=== PATIENT | female | born 1960 | race Two or more races ===

== ENCOUNTER 2023-09-18 10:47 | Inpatient (IN) | payer OTHER ==
[~2023-09-18] VITALS: Ht 157.5 cm; Wt 56.0 kg
[2023-09-18] MEDS ORDERED: MORPHINE SULFATE 4 MG/ML SYR/VIAL IV ONE (11:00)
[2023-09-18] MEDS ORDERED: ONDANSETRON HCL 4 MG/2 ML VIAL IV ONE (11:00)
[2023-09-18 11:17] LABS: Basophils # (auto) 0.1 10 ^3/uL (0-0.2); Basophils % (auto) 0.3 % (0.0-2.0); Neutrophils # (auto) 16.8 10 ^3/uL (1.6-8.6); Neutrophils % (auto) 89.4 % (37.0-80.0)
[2023-09-18 11:19] LABS: Eosinophils # (auto) 0.1 10 ^3/uL (0-0.8); Eosinophils % (auto) 0.6 % (0.0-7.0); Hematocrit 41.8 % (36.0-46.0); Hemoglobin 14.3 g/dL (12.2-16.2); Lymphocytes % (auto) 5.3 % (10.0-50.0); Mean Corpuscular Hemoglobin 35.6 pg (28.0-32.0); Mean Corpuscular Hgb Conc. 34.2 g/dL (32.0-36.0); Mean Corpuscular Volume 104.3 fL (80.0-100.0); Monocytes # (auto) 0.8 10 ^3/uL (0-1.3); Monocytes % (auto) 4.4 % (0.0-12.0); Red Cell Distribution Width 12.3 % (11.8-14.3); White Blood Cell 18.9 10^3/uL (4.4-10.8)
[2023-09-18 11:47] LABS: Albumin 4.8 g/dL (3.2-4.8); Alkaline Phosphatase 80 U/L (46-116); Anion Gap 6 (5-15); Aspartate Aminotransferase 18 U/L (13-40); BUN/Creatinine Ratio 9.7 (10.0-20.0); Bilirubin, Total 0.4 mg/dL (0.2-1.0); Blood Urea Nitrogen 7 mg/dL (9-23); Calcium 10.1 mg/dL (8.5-10.1); Carbon Dioxide 29 mmol/L (20-30); Chloride 98 mmol/L (98-107); Glucose 102 mg/dL (74-106); Potassium 3.7 mmol/L (3.5-5.1); Sodium 133 mmol/L (136-145); Total Protein 7.3 g/dL (5.7-8.2)
[2023-09-18 11:53] LABS: INR 0.96 (0.9-1.15); Partial Thromboplastin Time 31.3 SEC (24.5-34.5); Prothrombin Time 10.1 sec (9.3-11.8)
[2023-09-18 12:08] LABS: Alanine Aminotransferase 9 U/L (7-40)
[2023-09-18] MEDS ORDERED: IOHEXOL 300 MG/ML 100ML BOTTLE IJ ONE (12:32)
[2023-09-18 13:27] LABS: Lipase 45 U/L (12-53); Magnesium 1.6 mg/dL (1.6-2.6)
[2023-09-18] MEDS ORDERED: metroNIDAZOLE 500MG/100ML 100 ML IV ONE (13:45)
[2023-09-18] MEDS ORDERED: CIPROFLOXACIN 400MG/200ML 200 ML IV ONE (13:45)
[2023-09-18 15:00] VITALS: PULSE 106; RESP 18; O2SAT 96
[2023-09-18] MEDS ORDERED: ONDANSETRON HCL 4 MG/2 ML VIAL IV PRN (15:30)
[2023-09-18] MEDS ORDERED: MAGNESIUM SULFATE 1GM/100ML 100 ML IV ONE (15:30)
[2023-09-18] MEDS ORDERED: MORPHINE SULFATE INJ 2 MG/ml SYRG IV PRN (15:30)
[2023-09-18] MEDS ORDERED: NITROGLYCERIN 0.4 MG SL TAB SL PRN (15:30)
[2023-09-18] MEDS ORDERED: SODIUM CHLORIDE 0.9% 1,000 ML IV ONE ×2 (15:30)
[2023-09-18 16:06] LABS: INR 0.97 (0.9-1.15); Prothrombin Time 10.2 sec (9.3-11.8)
[2023-09-18] MEDS ORDERED: LISINOPRIL 20 MG TAB PO ONE (16:30)
[2023-09-18] MEDS ORDERED: PARoxetine 20 MG TAB PO ONE (16:30)
[2023-09-18] MEDS ORDERED: hydrALAZINE HCL 20 MG/ML VL IV PRN (16:45)
[2023-09-18] MEDS ORDERED: hydrALAZINE HCL 20 MG/ML VL IV ONE (16:45)
[2023-09-18] MEDS: buPROPion HCL 75 MG TAB PO SCH (20:45)
[2023-09-18] MEDS: MORPHINE SULFATE INJ 2 MG/ml SYRG IV PRN (21:54)
[2023-09-18] MEDS: SODIUM CHLORIDE 0.9% 1,000 ML IV SCH (21:54)
[2023-09-19] VITALS (7 sets, daily range): BP systolic 123–142; BP diastolic 74–90; PULSE 81–107; RESP 18–24; TEMP 98.2–98.5; O2SAT 89–97
[2023-09-19] MEDS: metroNIDAZOLE 500MG/100ML 100 ML IV SCH ×4 (00:42→20:48)
[2023-09-19] MEDS: ATORVASTATIN 20 MG TAB PO SCH ×2 (00:42→23:24)
[2023-09-19] MEDS: CIPROFLOXACIN 400MG/200ML 200 ML IV SCH ×3 (01:37→23:24)
[2023-09-19] MEDS: MORPHINE SULFATE INJ 2 MG/ml SYRG IV PRN ×3 (03:21→20:59)
[2023-09-19 03:57] LABS: Urine Bacteria NONE SEEN /hpf (None Seen); Urine Blood Negative /uL (Negative); Urine Clarity Clear (Clear); Urine Color Colorless (Yellow); Urine Protein, UAD Negative (Negative); Urine Specific Gravity 1.008 (1.001-1.035); Urine Urobilinogen Normal (Negative); Urine WBC <1 /hpf (0 - 5); Urine pH 6.5 (5.0-8.0)
[2023-09-19] MEDS: SODIUM CHLORIDE 0.9% 1,000 ML IV SCH ×2 (05:24→20:48)
[2023-09-19] MEDS: buPROPion HCL 75 MG TAB PO SCH ×3 (06:32→20:47)
[2023-09-19 06:45] LABS: Anion Gap 6 (5-15); Carbon Dioxide 29 mmol/L (20-30); Chloride 99 mmol/L (98-107); Potassium 3.7 mmol/L (3.5-5.1); Sodium 134 mmol/L (136-145)
[2023-09-19 06:46] LABS: Calcium 8.9 mg/dL (8.7-10.4)
[2023-09-19 06:52] LABS: Glucose 107 mg/dL (74-106)
[2023-09-19 06:53] LABS: BUN/Creatinine Ratio 8.3 (10.0-20.0); Basophils # (auto) 0 10 ^3/uL (0-0.2); Blood Urea Nitrogen < 5 mg/dL (9-23); Eosinophils # (auto) 0 10 ^3/uL (0-0.8); Hematocrit 36.1 % (36.0-46.0); Monocytes # (auto) 0.8 10 ^3/uL (0-1.3); Neutrophils # (auto) 12.6 10 ^3/uL (1.6-8.6); Neutrophils % (auto) 87.5 % (37.0-80.0); Red Blood Cells 3.42 10^6/uL (4.0-5.20); White Blood Cell 14.4 10^3/uL (4.4-10.8)
[2023-09-19 06:56] LABS: Basophils % (auto) 0.3 % (0.0-2.0); Eosinophils % (auto) 0.1 % (0.0-7.0); Lymphocytes % (auto) 6.8 % (10.0-50.0); Mean Corpuscular Hemoglobin 35.1 pg (28.0-32.0); Mean Corpuscular Hgb Conc. 33.2 g/dL (32.0-36.0); Mean Corpuscular Volume 105.7 fL (80.0-100.0); Monocytes % (auto) 5.3 % (0.0-12.0); Red Cell Distribution Width 12.1 % (11.8-14.3)
[2023-09-19] MEDS ORDERED: ONDANSETRON HCL 4 MG/2 ML VIAL ONE (07:07)
[2023-09-19] MEDS: ONDANSETRON HCL 4 MG/2 ML VIAL IV PRN ×4 (08:16→11:35)
[2023-09-19] MEDS: LISINOPRIL 20 MG TAB PO SCH (10:00)
[2023-09-19] MEDS: PARoxetine 20 MG TAB PO SCH (10:00)
[2023-09-19] MEDS ORDERED: SIMV5TAB14 PO (11:18)
[2023-09-19] MEDS ORDERED: BUPR-60 PO (11:18)
[2023-09-19] MEDS ORDERED: PAR20T PO (11:18)
[2023-09-19] MEDS ORDERED: LISI20TA56 PO (11:18)
[2023-09-20] MEDS: MORPHINE SULFATE INJ 2 MG/ml SYRG IV PRN (01:12)
[2023-09-20 04:52] VITALS: BP 151/98; PULSE 98; RESP 16; TEMP 98.5; O2SAT 95
[2023-09-20] MEDS: metroNIDAZOLE 500MG/100ML 100 ML IV SCH ×2 (05:01→13:10)
[2023-09-20 05:37] LABS: Basophils # (auto) 0 10 ^3/uL (0-0.2); Basophils % (auto) 0.2 % (0.0-2.0); Eosinophils # (auto) 0.1 10 ^3/uL (0-0.8); Hemoglobin 11.8 g/dL (12.2-16.2); Monocytes # (auto) 0.8 10 ^3/uL (0-1.3); White Blood Cell 13.7 10^3/uL (4.4-10.8)
[2023-09-20 05:40] LABS: Eosinophils % (auto) 0.4 % (0.0-7.0); Hematocrit 35.6 % (36.0-46.0); Lymphocytes # (auto) 1.3 10 ^3/uL (0.4-5.4); Lymphocytes % (auto) 9.5 % (10.0-50.0); Mean Corpuscular Hemoglobin 35.6 pg (28.0-32.0); Mean Corpuscular Hgb Conc. 33.2 g/dL (32.0-36.0); Mean Corpuscular Volume 107.2 fL (80.0-100.0); Monocytes % (auto) 5.6 % (0.0-12.0); Neutrophils # (auto) 11.5 10 ^3/uL (1.6-8.6); Neutrophils % (auto) 84.3 % (37.0-80.0); Red Blood Cells 3.32 10^6/uL (4.0-5.20)
[2023-09-20 05:43] LABS: Chloride 105 mmol/L (98-107); Potassium 3.9 mmol/L (3.5-5.1); Sodium 138 mmol/L (136-145)
[2023-09-20 05:44] LABS: Anion Gap 6 (5-15); Calcium 8.7 mg/dL (8.7-10.4); Carbon Dioxide 27 mmol/L (20-30)
[2023-09-20 05:49] LABS: Glucose 104 mg/dL (74-106)
[2023-09-20 06:21] LABS: BUN/Creatinine Ratio 8.8 (10.0-20.0); Blood Urea Nitrogen < 5 mg/dL (9-23)
[2023-09-20] MEDS: buPROPion HCL 75 MG TAB PO SCH (06:55)
[2023-09-20] MEDS: SODIUM CHLORIDE 0.9% 1,000 ML IV SCH (07:30)
[2023-09-20 08:00] VITALS: BP 144/86; PULSE 107; RESP 22; TEMP 98.5; O2SAT 94
[2023-09-20 08:20] VITALS: BP 144/86; PULSE 107; RESP 22; TEMP 98.2; O2SAT 94
[2023-09-20] MEDS: LISINOPRIL 20 MG TAB PO SCH (09:53)
[2023-09-20] MEDS: CIPROFLOXACIN 400MG/200ML 200 ML IV SCH (09:53)
[2023-09-20] MEDS: PARoxetine 20 MG TAB PO SCH (09:54)
[2023-09-20] MEDS ORDERED: METR-344 PO (11:26)
[2023-09-20] MEDS ORDERED: CIPR-173 PO (11:26)
[2023-09-20 12:15] VITALS: BP 163/95; PULSE 96; RESP 20; TEMP 98.7; O2SAT 97
[2023-09-20 14:52] VITALS: BP 144/86; PULSE 88; RESP 18; TEMP 98.2; O2SAT 94
== END 2023-09-20 15:20 | disposition home or self-care (01) | DRG 393 ==
LOC: ER 10:47 → OVERFLOW 15:17 → WEST WING 09-19 08:44
PROVIDERS: ADMIT Internal Medicine Pulmonary Disease; ATTEND Internal Medicine Pulmonary Disease
DX: K55.9 Vascular disorder of intestine, unspecified (principal); J96.01 Acute respiratory failure with hypoxia; R65.11 Systemic inflammatory response syndrome (SIRS) of non-infectious origin with acute organ dysfunction; E78.5 Hyperlipidemia, unspecified; F17.200 Nicotine dependence, unspecified, uncomplicated; I16.0 Hypertensive urgency; F41.9 Anxiety disorder, unspecified; Z87.11 Personal history of peptic ulcer disease; Z82.49 Family history of ischemic heart disease and other diseases of the circulatory system; Z82.61 Family history of arthritis
CPT/HCPCS: 36415; 74177; 80048; 80053; 81001; 83036; 83605; 83690; 83735; 85025; 85610; 85730; G0378; J2405; J3490